=== PATIENT | male | born 1940 | race African-American/Black ===

== ENCOUNTER 2016-05-06 11:13 | Emergency (ER) | payer BC, MEDICARE ==
[2016-05-06 11:04] LABS: BASOPHILS 0.2 %; BASOPHILS ABSOLUTE 0.01 10/3/uL (0.0-0.16); EOSINOPHILS 8.2 %; EOSINOPHILS ABSOLUTE 0.37 10/3/uL (0.0-0.53); ER CBC TAT 0 Hrs 09 Mins; HEMATOCRIT 36.5 % (40.0-51.0); HEMOGLOBIN 11.7 g/dL (13.6-17.8); LYMPHOCYTES 27.2 %; LYMPHOCYTES ABSOLUTE 1.23 10/3/uL (0.67-4.30); MANUAL DIFF NO %; MEAN CORPUS HGB CONC 32.1 g/dL (32.0-36.0); MEAN CORPUSCULAR HEMOGLOB 27.3 pg (26.0-34.0); MEAN CORPUSCULAR VOLUME 85.3 fL (80-100); MEAN PLATELET VOLUME 8.9 fL (9.2-13.0); MONOCYTES 7.7 %; MONOCYTES ABSOLUTE 0.35 10/3/uL (0.21-1.20); NEUTROPHILS 56.7 %; NEUTROPHILS ABSOLUTE 2.56 10/3/uL (2.02-8.40); PLATELET COUNT 239 10/3/uL (150-400); RBC DISTRIBUTION WIDTH 15.2 % (12.0-16.0); RED CELL COUNT 4.28 10/6/uL (4.7-6.1); WHITE BLOOD CELLS 4.5 10/3/uL (4.5-10.5)
[~2016-05-06 11:13] MED LIST: ALEVE220 MG PO; C5 PO; CENTRUM PO; COREGCR10 PO; DEXA5B; MCZ25 PO; MONOPRIL40 MG PO; MOTRIN IB200 MG PO; MULTIPLE VIT PO; NONI; NORCO1 TA1 PO; NORV10 PO; PCET PO
[2016-05-06 11:22] LABS: BUN (BLOOD UREA NITROGEN) 19 MG/DL (6-23); CALCIUM, SERUM 8.5 MG/DL (8.5-10.4); CHLORIDE, SERUM 105 MMOL/L (96-112); CO2 (CARBON DIOXIDE) 27 MMOL/L (24-34); CREATININE 1.18 MG/DL (0.70-1.30); GFR AFRICAN AMERICAN 70 ML/MIN (>=60); GFR NON AFRICAN AMERICAN 60 ML/MIN (>=60); GLUCOSE, SERUM 127 MG/DL (60-99); POTASSIUM, SERUM 3.8 MMOL/L (3.5-5.3); SODIUM, SERUM 140 MMOL/L (135-148)
[2016-05-06 11:27] LABS: ASCORBIC ACID (UR NOT ORDER) NEG (NEG); BILIRUBIN, URINE NEGATIVE (NEG); ER URINALYSIS TAT 0 Hrs 10 Mins; KETONE, URINE NEGATIVE (NEG); LEUKOCYTE ESTERASE(NOT OR NEG (NEG); NITRITE (URINE) NEG (NEG); WBC (NOT ORDERED) (RFLEX) 1 (0-5)
[2016-06-09] MEDS ORDERED: NORCO1 TAB PO (08:29)
[2016-06-09] MEDS ORDERED: COREGCR10 PO (08:45)
[2016-07-08] MEDS ORDERED: NORV10 PO (09:21)
[2016-07-08] MEDS ORDERED: [UNRECOGNIZED DRUG - OTHER] PO (09:22)
== END 2016-05-06 12:20 | disposition home or self-care (01) ==
LOC: ER 11:13
PROVIDERS: Nurse Practitioner Family
DX: M54.5 Low back pain (principal); K59.00 Constipation, unspecified; Z85.46 Personal history of malignant neoplasm of prostate; I10 Essential (primary) hypertension; Z88.0 Allergy status to penicillin; Z79.899 Other long term (current) drug therapy; Z79.01 Long term (current) use of anticoagulants
CPT/HCPCS: 72100; 80048; 81001; 85025; 96372; 99283

== ENCOUNTER 2016-05-07 18:29 | Emergency (ER) | payer BC, MEDICARE ==
[2016-05-07 20:42] LABS: ASCORBIC ACID (UR NOT ORDER) NEG (NEG); BILIRUBIN, URINE NEGATIVE (NEG); ER URINALYSIS TAT 0 Hrs 12 Mins; KETONE, URINE TRACE MG/DL (NEG); LEUKOCYTE ESTERASE(NOT OR NEG (NEG); NITRITE (URINE) NEG (NEG); WBC (NOT ORDERED) (RFLEX) 1 (0-5)
[2016-06-09] MEDS ORDERED: NORCO1 TAB PO (08:29)
[2016-06-09] MEDS ORDERED: COREGCR10 PO (08:45)
[2016-07-08] MEDS ORDERED: NORV10 PO (09:21)
[2016-07-08] MEDS ORDERED: [UNRECOGNIZED DRUG - OTHER] PO (09:22)
== END 2016-05-07 23:19 | disposition home or self-care (01) ==
LOC: ER 18:29
PROVIDERS: Nurse Practitioner Acute Care
DX: M54.5 Low back pain (principal); I10 Essential (primary) hypertension; Z88.0 Allergy status to penicillin; Z88.8 Allergy status to other drugs, medicaments and biological substances; Z79.01 Long term (current) use of anticoagulants; Z79.899 Other long term (current) drug therapy
CPT/HCPCS: 72131; 81001; 99284

== ENCOUNTER 2016-06-10 04:43 | Day surgery (SDC) | payer BC ==
[~2016-06-10 04:43] MED LIST changes: +NORCO1 TAB PO
[2016-07-08] MEDS ORDERED: NORV10 PO (09:21)
[2016-07-08] MEDS ORDERED: [UNRECOGNIZED DRUG - OTHER] PO (09:22)
== END 2016-06-10 16:05 | disposition home or self-care (01) ==
LOC: SDC 04:43
PROVIDERS: Orthopaedic Surgery
PROC: B01BZZZ Fluoroscopy of Spinal Cord (ICD-10-PCS; 2016-06-10)
PROC: 3E0R3BZ Introduction of Anesthetic Agent into Spinal Canal, Percutaneous Approach (ICD-10-PCS; principal; 2016-06-10 08:30)
DX: M54.16 Radiculopathy, lumbar region (principal); I10 Essential (primary) hypertension; M19.90 Unspecified osteoarthritis, unspecified site; K21.9 Gastro-esophageal reflux disease without esophagitis; Z86.010 Personal history of colon polyps; Z98.890 Other specified postprocedural states
CPT/HCPCS: J1040; J2250; J3010; Q9967

== ENCOUNTER 2016-07-10 04:55 | Day surgery (SDC) | payer BC ==
[~2016-07-10 04:55] MED LIST changes: +[UNRECOGNIZED DRUG - OTHER] PO
== END 2016-07-10 07:55 | disposition home or self-care (01) ==
LOC: SDC 04:55
PROVIDERS: Orthopaedic Surgery
PROC: 3E0R3BZ Introduction of Anesthetic Agent into Spinal Canal, Percutaneous Approach (ICD-10-PCS; 2016-07-10)
PROC: B01BYZZ Fluoroscopy of Spinal Cord using Other Contrast (ICD-10-PCS; 2016-07-10)
PROC: 3E0R33Z Introduction of Anti-inflammatory into Spinal Canal, Percutaneous Approach (ICD-10-PCS; principal; 2016-07-10 07:15)
DX: M54.16 Radiculopathy, lumbar region (principal); I10 Essential (primary) hypertension; M19.90 Unspecified osteoarthritis, unspecified site; Z85.46 Personal history of malignant neoplasm of prostate; Z88.0 Allergy status to penicillin; Z88.5 Allergy status to narcotic agent; Z88.8 Allergy status to other drugs, medicaments and biological substances; Z98.890 Other specified postprocedural states
CPT/HCPCS: J1040; J2250; J2405; J3010; Q9967